=== PATIENT | female | born 1950 | race Caucasian/White ===

== ENCOUNTER 2019-03-18 21:37 | Emergency (ER) | payer MEDICARE, BC ==
[~2019-03-18] VITALS: Ht 157.5 cm; Wt 72.6 kg
--- NOTE | 2019-03-18 22:11 | NUR ---
[employer] AT BEDSIDE.
--- NOTE | 2019-03-18 23:21 | NUR ---
Patient discharged to home in stable conditon. Written and verbal after care instructions given. Patient verbalizes understanding of instructions.
== END 2019-03-18 23:23 | disposition home or self-care (01) ==
LOC: ER 21:41
DX: S93.402A Sprain of unspecified ligament of left ankle, initial encounter (principal); Z88.0 Allergy status to penicillin; Z88.1 Allergy status to other antibiotic agents; Z91.018 Allergy to other foods; W01.0XXA Fall on same level from slipping, tripping and stumbling without subsequent striking against object, initial encounter; Y93.89 Activity, other specified; Y92.89 Other specified places as the place of occurrence of the external cause; Y99.8 Other external cause status
CPT/HCPCS: 73610; 73630; A4663